=== PATIENT | male | born 1945 | race Caucasian/White ===

== ENCOUNTER 2019-10-05 05:28 | Day surgery (SDC) | payer MEDICARE, OTHER ==
[2019-10-04 10:42] VITALS: BMI 34.2
--- NOTE | 2019-10-05 09:49 | OP ---
DATE OF PROCEDURE: 10/05/2019 PREPROCEDURE DIAGNOSIS: Prior history of colon polyps. POSTPROCEDURE DIAGNOSES: 1. Four polyps ranging in size from 2 to 7 mm in the ileocecal valve and cecal regions, removed by combination of hot snare and cold snare polypectomy. 2. Two ascending colon polyps, 2 to 4 mm in size, removed by cold snare polypectomy. 3. Four transverse colon polyps, 2 to 4 mm in size, removed by cold snare polypectomy. 4. One distal sigmoid polyp, 3 mm, removed by cold snare polypectomy. 5. Sigmoid diverticulosis. RECOMMENDATIONS: 1. Repeat colonoscopy in 3 years. 2. Await pathology results. 3. Resume medications today. 4. Resume Plavix in 3 days. ANESTHESIA: TIVA. PROCEDURE IN DETAIL: After the patient was informed of the risks, benefits, and possible complications of endoscopy including perforation, bleeding, reaction to medication, and aspiration, informed consent was obtained. The patient was brought to endoscopy suite, where he was sedated in gradual fashion. Once he was comfortable, rectal exam was performed. The endoscope was advanced into the anal canal through the colon to the cecum. The prep was good. The colon was tortuous with deep colonic folds. The scope was then slowly removed once documentation of the ileocecal valve, terminal ileum, and appendiceal orifice was obtained. On slowly removing the scope, 4 polyps were noted; one at the ileocecal valve removed by hot snare polypectomy was about 7 mm in size, and then 3 others in the ileocecal valve and cecal region, which were removed by cold snare polypectomy. Two sessile polyps were also found in the ascending colon, removed by cold snare polypectomy, and then 4 small polyps were noted in the transverse colon, removed by cold snare polypectomy. There was diverticular disease in the sigmoid. There was one 3 mm polyp removed by cold snare polypectomy in the sigmoid as well. Retroflexed views in the rectum were normal. The scope was removed. The patient tolerated the procedure well without complications. Job ID: [id number]
[2019-10-05] MEDS ORDERED: EPHEDRINE 25 MG/5 ML SYRINGE ONE (11:57)
[2019-10-05] MEDS ORDERED: PROPOFOL 200 MG/20 ML VIAL ONE (11:57)
== END 2019-10-05 10:35 | disposition home or self-care (01) ==
LOC: SDC 05:28
PROVIDERS: ATTEND Internal Medicine Gastroenterology
PROC: 0DBK8ZX Excision of Ascending Colon, Via Natural or Artificial Opening Endoscopic, Diagnostic (ICD-10-PCS; principal; 2019-10-05)
PROC: 0DBL8ZZ Excision of Transverse Colon, Via Natural or Artificial Opening Endoscopic (ICD-10-PCS; 2019-10-05)
PROC: 0DBN8ZX Excision of Sigmoid Colon, Via Natural or Artificial Opening Endoscopic, Diagnostic (ICD-10-PCS; 2019-10-05)
PROC: 0DBH8ZX Excision of Cecum, Via Natural or Artificial Opening Endoscopic, Diagnostic (ICD-10-PCS; 2019-10-05)
DX: Z12.11 Encounter for screening for malignant neoplasm of colon (principal); D12.0 Benign neoplasm of cecum; D12.2 Benign neoplasm of ascending colon; D12.3 Benign neoplasm of transverse colon; D12.5 Benign neoplasm of sigmoid colon; K57.30 Diverticulosis of large intestine without perforation or abscess without bleeding; Q43.8 Other specified congenital malformations of intestine; I25.10 Atherosclerotic heart disease of native coronary artery without angina pectoris; E11.9 Type 2 diabetes mellitus without complications; K21.9 Gastro-esophageal reflux disease without esophagitis; E78.00 Pure hypercholesterolemia, unspecified; I10 Essential (primary) hypertension; I25.2 Old myocardial infarction; G47.30 Sleep apnea, unspecified; E07.9 Disorder of thyroid, unspecified; Z86.010 Personal history of colon polyps; Z79.82 Long term (current) use of aspirin; Z79.02 Long term (current) use of antithrombotics/antiplatelets; Z79.4 Long term (current) use of insulin; Z79.899 Other long term (current) drug therapy; Z95.5 Presence of coronary angioplasty implant and graft; Z95.810 Presence of automatic (implantable) cardiac defibrillator
CPT/HCPCS: 36416; 88305; J2704

== ENCOUNTER 2020-06-24 06:27 | Outpatient (CLI) | payer MEDICARE, OTHER ==
[2020-06-24 10:14] LABS: Hemoglobin 16.5 g/dL (14.0-18.0); Mean Corpuscular HGB CONC 33.5 G/DL (32.0-36.0); Mean Corpuscular Hemoglobin 31.1 PG (27.0-33.0); Mean Platelet Volume 10.1 fl (7.4-10.4); Platelet Count 195 10x3/uL (130-400); RBC Distribution Width 14.3 % (11.5-14.5); White Blood Cell (WBC) Count 7.9 10x3/uL (4.5-11.0)
[2020-06-24 11:17] LABS: Anion Gap 17 mmol/L (10-20); BUN (Urea Nitrogen) 12 mg/dL (8.4-25.7); Calc. Creatinine Clearance 0 mL/min (70-130); Calcium 8.5 mg/dL (7.8-10.44); Carbon Dioxide 22 mmol/L (23-31); Chloride 105 mmol/L (98-107); Estimated GFR-MDRD 62; Glucose 66 mg/dL (83-110); Potassium 4.6 mmol/L (3.5-5.1); Sodium 139 mmol/L (136-145)
[2020-06-25 10:22] LABS: SARS-CoV-2 MS2 Positive; SARS-CoV-2 N Gene Negative; SARS-CoV-2 S Gene Negative; SARS-CoV-2 by NAA Not Detected (NotDetected); SARS-CoV-2 orf1ab Negative
== END 2020-06-24 06:28 | disposition home or self-care (01) ==
LOC: LABBT 06:27
PROVIDERS: ATTEND Specialist
DX: Z01.818 Encounter for other preprocedural examination (principal); J38.00 Paralysis of vocal cords and larynx, unspecified; J38.7 Other diseases of larynx; R13.10 Dysphagia, unspecified; J38.3 Other diseases of vocal cords; Z20.828 Contact with and (suspected) exposure to other viral communicable diseases
CPT/HCPCS: 80048; 85027; 93005; U0003; 87635; 93010

== ENCOUNTER 2020-06-27 07:25 | Day surgery (SDC) | payer MEDICARE, OTHER ==
[2020-06-25 11:07] VITALS: BMI 32.9
[2020-06-27] MEDS ORDERED: Fentanyl 100 MCG/2 ML VIAL ONE ×2 (07:52→09:09)
[2020-06-27] MEDS ORDERED: Acetaminophen 500 MG TAB ONE (08:59)
[2020-06-27] MEDS ORDERED: Propofol 500 MG/50 ML VIAL ONE ×2 (09:09→09:10)
[2020-06-27] MEDS ORDERED: Midazolam HCl 2 mg/2 ml Vial ONE (09:09)
[2020-06-27] MEDS ORDERED: PROPOFOL 200 MG/20 ML VIAL ONE (10:07)
[2020-06-27] MEDS ORDERED: ePHEDrine 50 MG/ML VIAL ONE (10:07)
[2020-06-27] MEDS ORDERED: PHENYLEPHRINE-NS 100 MCG/ML 10 ML SYRINGE ONE (10:07)
[2020-06-27] MEDS ORDERED: Rocuronium Bromide 10 MG/ML (10ML VIAL) ONE (10:07)
[2020-06-27] MEDS ORDERED: Lidocaine 1% PF 5 ML VIAL ONE (10:07)
[2020-06-27] MEDS ORDERED: Glycopyrrolate 0.2 MG/ML 5 ML SYRINGE ONE (10:07)
[2020-06-27] MEDS ORDERED: Ondansetron PF 4 MG/2 ML Vial ONE (10:07)
[2020-06-27] MEDS ORDERED: Dexamethasone 20 MG/5 ML VIAL ONE (10:07)
[2020-06-27] MEDS ORDERED: EPINEPHrine 1 MG/ML AMP ONE (10:54)
--- NOTE | 2020-06-28 13:44 | OP ---
DATE OF PROCEDURE: 06/27/2020 PREOPERATIVE DIAGNOSIS: Left posterior vocal cord lesion. POSTOPERATIVE DIAGNOSIS: Left posterior vocal cord lesion. PROCEDURE PERFORMED: Microsuspension laryngoscopy with biopsy of left vocal cord lesion. PROCEDURE IN DETAIL: After consent was obtained, the patient was identified and brought to the operating room and placed on operating table in supine position. General endotracheal anesthesia was obtained. The patient was positioned for laryngeal examination. Operating laryngoscope was placed into the vallecula and suspended out of the table. We then had full visualization of the larynx under endoscopic visualization. Photographs were obtained which revealed an exophytic lesion of the left posterior vocal cord at the level of the vocal process of the arytenoid cartilage. We obtained biopsies of this area and then cauterized the remaining granulation tissue. The specimen was sent for histologic evaluation. The patient was then awakened, extubated, taken to recovery room in stable condition prior to discharge home. Job ID: [id number]
== END 2020-06-27 11:50 | disposition home or self-care (01) ==
LOC: SDC 07:25
PROVIDERS: ATTEND Specialist
PROC: 0CBV8ZX Excision of Left Vocal Cord, Via Natural or Artificial Opening Endoscopic, Diagnostic (ICD-10-PCS; principal; 2020-06-27)
DX: D14.1 Benign neoplasm of larynx (principal); J38.01 Paralysis of vocal cords and larynx, unilateral; J38.7 Other diseases of larynx; J38.3 Other diseases of vocal cords; K21.9 Gastro-esophageal reflux disease without esophagitis; G47.30 Sleep apnea, unspecified; I25.10 Atherosclerotic heart disease of native coronary artery without angina pectoris; E11.9 Type 2 diabetes mellitus without complications; I10 Essential (primary) hypertension; E03.9 Hypothyroidism, unspecified; Z79.02 Long term (current) use of antithrombotics/antiplatelets; Z79.4 Long term (current) use of insulin; Z79.82 Long term (current) use of aspirin; Z79.899 Other long term (current) drug therapy; Z95.1 Presence of aortocoronary bypass graft; Z95.5 Presence of coronary angioplasty implant and graft
CPT/HCPCS: 88305; J0171; J1100; J2250; J2405; J2704; J3010; J3490

== ENCOUNTER 2021-07-28 09:30 | Outpatient (CLI) | payer MEDICARE, OTHER | END 2021-07-28 09:31 | disposition home or self-care (01) | LOC: BICCT 09:30 | PROVIDERS: ATTEND Internal Medicine Critical Care Medicine | DX: R91.8 Other nonspecific abnormal finding of lung field (principal); K80.20 Calculus of gallbladder without cholecystitis without obstruction | CPT/HCPCS: 71250 ==

== ENCOUNTER 2022-01-19 11:49 | Outpatient (CLI) | payer MEDICARE, OTHER | END 2022-01-19 11:50 | disposition home or self-care (01) | LOC: SCSRAD 11:49 | PROVIDERS: ATTEND Family Medicine | DX: M25.562 Pain in left knee (principal); M17.2 Bilateral post-traumatic osteoarthritis of knee; M25.762 Osteophyte, left knee ==

== ENCOUNTER 2022-04-29 09:28 | Outpatient (CLI) | payer MEDICARE, OTHER | END 2022-04-29 09:29 | disposition home or self-care (01) | LOC: CT 09:28 | PROVIDERS: ATTEND Internal Medicine Critical Care Medicine | DX: R91.8 Other nonspecific abnormal finding of lung field (principal); I25.10 Atherosclerotic heart disease of native coronary artery without angina pectoris; R91.1 Solitary pulmonary nodule; E07.89 Other specified disorders of thyroid; I70.0 Atherosclerosis of aorta; M47.816 Spondylosis without myelopathy or radiculopathy, lumbar region; M47.814 Spondylosis without myelopathy or radiculopathy, thoracic region; M89.9 Disorder of bone, unspecified | CPT/HCPCS: 71250 ==

== ENCOUNTER 2022-09-01 08:55 | Outpatient (CLI) | payer MEDICARE, OTHER | END 2022-09-01 08:56 | disposition home or self-care (01) | LOC: BICRAD 08:55 | PROVIDERS: ATTEND Family Medicine | DX: S29.9XXD Unspecified injury of thorax, subsequent encounter (principal) | CPT/HCPCS: 71111 ==

== ENCOUNTER 2022-10-26 05:36 | Day surgery (SDC) | payer MEDICARE, OTHER ==
[2022-10-22 15:16] VITALS: BMI 33.9
[2022-10-26] MEDS ORDERED: PROPOFOL 200 MG/20 ML VIAL ONE (07:52)
== END 2022-10-26 09:09 | disposition home or self-care (01) ==
LOC: SDC 05:36
PROVIDERS: ATTEND Internal Medicine Gastroenterology
PROC: 0DBK8ZX Excision of Ascending Colon, Via Natural or Artificial Opening Endoscopic, Diagnostic (ICD-10-PCS; principal; 2022-10-26)
PROC: 0DBL8ZX Excision of Transverse Colon, Via Natural or Artificial Opening Endoscopic, Diagnostic (ICD-10-PCS; 2022-10-26)
PROC: 0DBN8ZX Excision of Sigmoid Colon, Via Natural or Artificial Opening Endoscopic, Diagnostic (ICD-10-PCS; 2022-10-26)
PROC: 0DBM8ZX Excision of Descending Colon, Via Natural or Artificial Opening Endoscopic, Diagnostic (ICD-10-PCS; 2022-10-26)
DX: Z12.11 Encounter for screening for malignant neoplasm of colon (principal); D12.2 Benign neoplasm of ascending colon; D12.3 Benign neoplasm of transverse colon; D12.4 Benign neoplasm of descending colon; D12.5 Benign neoplasm of sigmoid colon; I10 Essential (primary) hypertension; E11.9 Type 2 diabetes mellitus without complications; I25.2 Old myocardial infarction; Z86.010 Personal history of colon polyps; Z79.02 Long term (current) use of antithrombotics/antiplatelets; Z79.4 Long term (current) use of insulin; Z79.82 Long term (current) use of aspirin; Z79.85 Long-term (current) use of injectable non-insulin antidiabetic drugs; Z79.890 Hormone replacement therapy; Z79.899 Other long term (current) drug therapy; Z95.1 Presence of aortocoronary bypass graft; Z95.5 Presence of coronary angioplasty implant and graft; Z95.810 Presence of automatic (implantable) cardiac defibrillator
CPT/HCPCS: 88305; J2704

== ENCOUNTER 2022-11-24 15:51 | Outpatient (CLI) | payer MEDICARE, OTHER | END 2022-11-24 15:52 | disposition home or self-care (01) | LOC: SCSRAD 15:51 | PROVIDERS: ATTEND Family Medicine | DX: M25.551 Pain in right hip (principal); M25.552 Pain in left hip ==

== ENCOUNTER 2025-07-20 14:05 | Outpatient (CLI) | payer MEDICARE, OTHER ==
[~2025-07-20 14:05] MED LIST: Iopamidol 370 76% 100 ML VIAL ONE
[2025-07-20 14:54] LABS: Estimated GFR - POC 76.0
== END 2025-07-20 14:06 | disposition home or self-care (01) ==
LOC: CT 14:05
PROVIDERS: ATTEND Internal Medicine Cardiovascular Disease
DX: I73.9 Peripheral vascular disease, unspecified (principal); I51.7 Cardiomegaly; K80.20 Calculus of gallbladder without cholecystitis without obstruction; R91.8 Other nonspecific abnormal finding of lung field; I25.10 Atherosclerotic heart disease of native coronary artery without angina pectoris
CPT/HCPCS: 36415; 75635; 82565; Q9967